=== PATIENT | male | born 1970 | race Caucasian/White ===

== ENCOUNTER → 2016-04-26 | Outpatient (CLI) | payer OTHER ==
--- NOTE | 2016-04-26 14:09 | US ---
EXAMINATION TYPE: US abdomen complete DATE OF EXAM: 04/26/2016 11:21 AM COMPARISON: CT in PACS CLINICAL HISTORY: Generalized ABD pain EXAM MEASUREMENTS: Liver Length: 15.8 cm Gallbladder Wall: 0.3 cm CBD: 0.4 cm Spleen: 10.2 cm Right Kidney: 12.1 x 4.6 x 5.2 cm Left Kidney: 11.3 x 6.2 x 6.0 cm ANATOMY: TECHNOLOGIST IMPRESSION: Pancreas: Obscured by bowel gas Liver: Heterogeneous, probable fatty sparing near GB/ Difficult to penetrate Gallbladder: wnl Evidence for sonographic Payton's sign: No CBD: wnl Spleen: wnl Right Kidney: wnl Left Kidney: wnl Upper IVC: wnl Abd Aorta: wnl As Above IMPRESSION: 1. Normal abdomen ultrasound.
== END | disposition home or self-care (01) ==
LOC: RADUSWWP 11:04
PROVIDERS: ATTEND Family Medicine
DX: R10.30 Lower abdominal pain, unspecified (principal)
CPT/HCPCS: 76700

== ENCOUNTER → 2016-05-17 | Outpatient (CLI) | payer OTHER ==
--- NOTE | 2016-05-17 15:05 | NM ---
EXAMINATION TYPE: NM hepatobiliary w CCK DATE OF EXAM: 05/17/2016 3:02 PM COMPARISON: Right upper quadrant ultrasound April 26, 2016 HISTORY: Cholecystitis per order. Abdominal pain on the right side with diminished appetite for 3 wee ks as well as reflux and nausea. TECHNIQUE: After the intravenous administration of 5.5 mCi Tc 99m Mebrofenin hepatobiliary scintigrap hy is performed. Immediate images post injection. FINDINGS: There is satisfactory initial accumulation of tracer by the liver. The gallbladder is visualized wit hin 15 minutes. The small bowel activity is noted within 45 minutes. At one hour CCK was administer ed, patient was injected with 1.7 mcg of Kinevac, and gallbladder ejection fraction is calculated at 88 %, not diminished from normal range. Therefore there is no scintigraphic evidence of cystic or co mmon bile duct obstruction to suggest acute cholecystitis. Some consider ejection fraction 88% as abn ormal are hyperkinetic response. IMPRESSION: Ejection fraction is 88%, some consider this abnormal or a hyperkinetic response.
== END | disposition home or self-care (01) ==
LOC: RADNMMAIN 12:37
PROVIDERS: ATTEND Surgery
DX: R10.84 Generalized abdominal pain (principal)
CPT/HCPCS: 78227; A9537; J2805

== ENCOUNTER 2016-05-20 08:04 | Day surgery (SDC) | payer OTHER ==
[2016-05-19 14:43] VITALS: BMI 31.6
[~2016-05-20 08:04] MED LIST: LACTATED RINGERS 1,000 ML IV SCH
[2016-05-20 08:24] VITALS: RESP 16; TEMP 98
[2016-05-20] MEDS ORDERED: LIDOCAINE 1% 20 ML VIAL (10MG/ML) FOR IV START INTRADERMA ONE (08:28)
[2016-05-20] MEDS ORDERED: fentaNYL (PF) 50 MCG/ML 2 ML AMP ONE (08:37)
[2016-05-20] MEDS ORDERED: PROPOFOL 10 MG/ML 20 ML VIAL IV ONE (08:37)
[2016-05-20] MEDS ORDERED: MIDAZOLAM 2 MG/2 ML VIAL ONE (08:37)
--- NOTE | 2016-05-20 08:52 | P.GSHP ---
History of Present Illness H&P Date: 05/20/16 Chief Complaint: Epigastric abdominal pain, GERD This a 45-year-old male who has complaints of epigastric dull pain and GERD. He presents today for EGD. He was seen in the office and a HIDA scan was ordered. His HIDA scan shows evidence of biliary hypokinesis with ejection fraction of 88%. - Constitutional Constitutional: Reports as per HPI Past Medical History Past Medical History: Cancer Additional Past Medical History / Comment(s): testicular CA History of Any Multi-Drug Resistant Organisms: None Reported Past Surgical History: No Surgical Hx Reported Additional Past Surgical History / Comment(s): testicle ; Abd. lymph node biopsy Past Psychological History: No Psychological Hx Reported Smoking Status: Current some day smoker Past Alcohol Use History: None Reported Past Drug Use History: Marijuana Medications and Allergies Home Medications Medication Instructions Recorded Confirmed Type Citalopram Hydrobromide [CeleXA] 40 mg PO DAILY 05/19/16 05/20/16 History QUEtiapine [SEROquel] 200 mg PO HS 05/19/16 05/20/16 History Allergies Allergy/AdvReac Type Severity Reaction Status Date / Time latex Allergy Rash/Hives Verified 05/20/16 08:24 Surgical - Exam Vital Signs Temp Pulse Resp BP Pulse Ox 98 F 67 16 121/84 97 05/20/16 08:21 05/20/16 08:21 05/20/16 08:21 05/20/16 08:21 05/20/16 08:21 - General well developed, no distress - Eyes PERRL - ENT normal pinna - Neck no masses - Respiratory normal expansion - Cardiovascular Rhythm: regular - Abdomen Mild right upper quadrant tenderness Abdomen: soft Assessment and Plan Plan: Epigastric abdominal pain, GERD. We'll perform EGD.
--- NOTE | 2016-05-20 09:02 | P.OP ---
Preoperative Diagnosis: GERD Postoperative Diagnosis: Antral gastritis Sliding hiatal hernia Esophagitis Procedure(s) Performed: EGD Anesthesia: MAC Surgeon: Brad Sanchez Pathology: other (Antral, esophagus) Condition: stable Disposition: PACU Description of Procedure: The patient's placed on the endoscopy table in the lateral position. He received IV sedation. The gastroscope some placed oropharynx and passed into the esophagus and into the stomach. Scope was then placed through the pylorus. The first and second portion of the duodenum appeared normal. Scope was then brought back the antrum. This area was minimally inflamed. A biopsies performed. The scope was then retroflexed and the remainder some appeared normal. There was a sliding hiatal hernia. The GE junction was at 38 cm. The distal esophagus appeared inflamed a biopsies performed. The proximal esophagus. Normal. Scope was withdrawn for patient.
[2016-05-20 09:27] VITALS: BP 110/77; PULSE 58
== END 2016-05-20 09:47 | disposition home or self-care (01) ==
LOC: ORWHC2ENDO 08:04
PROVIDERS: ATTEND Surgery
DX: K29.50 Unspecified chronic gastritis without bleeding (principal); K44.9 Diaphragmatic hernia without obstruction or gangrene; K21.0 Gastro-esophageal reflux disease with esophagitis; Z85.47 Personal history of malignant neoplasm of testis; F39 Unspecified mood [affective] disorder; F17.200 Nicotine dependence, unspecified, uncomplicated; Z79.899 Other long term (current) drug therapy; Z91.040 Latex allergy status
CPT/HCPCS: 88305; 88342; 43239; J2250; J3010; J2704; 99153

== ENCOUNTER 2016-06-07 06:29 | Day surgery (SDC) | payer OTHER ==
[2016-06-03 18:06] VITALS: BMI 31.6
[~2016-06-07 06:29] MED LIST changes: +DEXAMETHASONE SOD PHOSPHATE 10 MG/ML 1 ML VIAL IV ONE; +HEPARIN SODIUM,PORCINE 5,000 UNIT/ML 1 ML VIAL SQ ONE; +MIDAZOLAM 2 MG/2 ML VIAL IV PRN; +ONDANSETRON 4 MG/2 ML VIAL IVP ONE; +ceFAZolin 2 GM in SODIUM CHLORIDE 0.9% 100 ML IVPB ONE
[2016-06-07] MEDS ORDERED: LIDOCAINE 1% 20 ML VIAL (10MG/ML) FOR IV START INTRADERMA ONE (07:00)
--- NOTE | 2016-06-07 07:52 | P.GSHP ---
History of Present Illness H&P Date: 06/07/16 Chief Complaint: Cholecystitis This a 45-year-old male said complaints of right quadrant pain. His recent HIDA scan shows an elevated ejection fraction 88% with evidence of biliary hyperkinesia. He presents today for laparoscopic cholecystectomy. - Constitutional Constitutional: Reports as per HPI Past Medical History Past Medical History: Cancer Additional Past Medical History / Comment(s): hx. testicular cancer, just started antibiotics for "intestine" infection, has hiatal hernia History of Any Multi-Drug Resistant Organisms: None Reported Past Surgical History: No Surgical Hx Reported Additional Past Surgical History / Comment(s): testicle removed,abd. lymph node bx., recent EGD Past Anesthesia/Blood Transfusion Reactions: No Reported Reaction Past Psychological History: No Psychological Hx Reported Smoking Status: Former smoker Past Alcohol Use History: None Reported Additional Past Alcohol Use History / Comment(s): quit smoking last week, started in 1989 Past Drug Use History: Marijuana Additional Drug Use History / Comment(s): occasional use - Past Family History Mother Family Medical History: No Reported History Medications and Allergies Home Medications Medication Instructions Recorded Confirmed Type Citalopram Hydrobromide [CeleXA] 40 mg PO HS 05/19/16 06/07/16 History QUEtiapine [SEROquel] 200 mg PO HS 05/19/16 06/07/16 History Amoxicillin 500 mg PO Q12HR 06/03/16 06/07/16 History Clarithromycin [Clarithromycin ER] 500 mg PO DAILY 06/03/16 06/07/16 History Omeprazole 20 mg PO DAILY 06/03/16 06/07/16 History Allergies Allergy/AdvReac Type Severity Reaction Status Date / Time latex Allergy Rash/Hives Verified 06/07/16 06:46 Surgical - Exam Vital Signs Temp Pulse Resp BP Pulse Ox 97.0 F L 77 16 145/87 98 06/07/16 06:42 06/07/16 06:42 06/07/16 06:42 06/07/16 06:42 06/07/16 06:42 - General well developed, no distress - Eyes PERRL - ENT normal pinna - Neck no masses - Respiratory normal expansion - Cardiovascular Rhythm: regular - Abdomen Mild right upper quadrant pain Abdomen: soft Assessment and Plan Plan: Right upper quadrant pain. Elevated ejection fraction, biliary hypokinesis We'll perform laparoscopic cholecystectomy
[2016-06-07] MEDS ORDERED: HYDROmorphone (PF) 1 MG/ML ONE (07:56)
[2016-06-07] MEDS ORDERED: NEOSTIGMINE 1 MG/ML 10 ML VIAL ONE (07:56)
[2016-06-07] MEDS ORDERED: BUPIVACAIN-EPI 0.25%-1:200,000 30 ML VIAL SQ ONE ×3 (07:56→08:21)
[2016-06-07] MEDS ORDERED: ROCURONIUM BROMIDE 10 MG/ML 10 ML VIAL IV ONE (07:56)
[2016-06-07] MEDS ORDERED: PROPOFOL 10 MG/ML 20 ML VIAL IV ONE (07:56)
[2016-06-07] MEDS ORDERED: SUCCINYLCHOLINE CHLORIDE 100 MG/5 ML SYR IV ONE (07:56)
[2016-06-07] MEDS ORDERED: LIDOCAINE 1% INJ 10MG/ML (20 ML MDV) ONE (07:56)
[2016-06-07] MEDS ORDERED: fentaNYL (PF) 50 MCG/ML 2 ML AMP ONE (07:56)
[2016-06-07] MEDS ORDERED: GLYCOPYRROLATE 0.2 MG/ML 2 ML VIAL ONE (07:56)
[2016-06-07] MEDS ORDERED: MIDAZOLAM 2 MG/2 ML VIAL ONE (07:56)
--- NOTE | 2016-06-07 08:48 | P.OP ---
Date of Procedure: 06/07/16 Preoperative Diagnosis: Cholecystitis Postoperative Diagnosis: Cholecystitis Procedure(s) Performed: Laparoscopic cholecystectomy Anesthesia: BLANCO Surgeon: Brad Sanchez Estimated Blood Loss (ml): 5 Pathology: other (Gallbladder) Condition: stable Disposition: PACU Description of Procedure: The patient was placed on the operating table. The patient received a general endotracheal tube anesthesia. The patients abdomen was prepped and draped in the usual sterile fashion. Through an infraumbilical stab incision, the fascia of the anterior abdominal wall was grasped with a pair of Kochers and then the Veress needle was placed in the peritoneal cavity. Position of the Veress needle was confirmed with positive drop test. The abdomen was then insufflated. After adequate insufflation, the 10 mm trocar was placed in the peritoneal cavity. Following this the laparoscope was placed in the peritoneal cavity. The patient was placed in the head-up, right side up position and then a 5 mm trocar was placed in the right lateral and right subcostal position under direct visualization. A 8 mm trocar was placed in the epigastric position. The gallbladder was grasped in the fundus and infundibulum. Traction on the gallbladder was placed in the lateral and the cephalad positions. The triangle of Calot was visualized.. The cystic duct was bluntly dissected until the union of the cystic duct and common bile duct was seen. The cystic duct was then divided and sealed with the Harmonic scissors. A PDS Endoloop was then placed throughout the cystic duct stump. The cystic artery divided and sealed with the Harmonic scissors. The gallbladder was then removed from the liver bed using Harmonic scissors. The gallbladder was then extracted through the epigastric port site. Operative field was checked for any bleeding spots and Harmonic scissors was used to coagulate the liver bed. The abdomen was irrigated. The trocars were removed. The skin was closed using interrupted 3-0 Vicryl suture. Dermabond dressing were applied. The patient tolerated the procedure well.
[2016-06-07 09:08] VITALS: TEMP 97.6
[2016-06-07] MEDS: HYDROmorphone 1 MG/ML 1 ML SYRINGE IVP PRN ×2 (09:08→09:21)
[2016-06-07] MEDS ORDERED: LACTATED RINGERS 1,000 ML IV ONE (09:13)
[2016-06-07] MEDS ORDERED: HYDROmorphone 1 MG/ML 1 ML SYRINGE IVP ONE (09:15)
[2016-06-07] MEDS ORDERED: MEPERIDINE 50 MG/ML SYRINGE IVP ONE (09:30)
[2016-06-07] MEDS ORDERED: HYDROcodone/APAP 7.5-325MG 1 EACH TAB PO ONE (10:37)
[2016-06-07 11:37] VITALS: RESP 18
[2016-06-07 11:46] VITALS: BP 141/85; PULSE 66
== END 2016-06-07 12:20 | disposition home or self-care (01) ==
LOC: OR 06:29
PROVIDERS: ATTEND Surgery
DX: K81.1 Chronic cholecystitis (principal); Z87.891 Personal history of nicotine dependence; Z85.47 Personal history of malignant neoplasm of testis; F32.9 Major depressive disorder, single episode, unspecified; Z91.040 Latex allergy status
CPT/HCPCS: 88304; 47562; J2250; J1644; J1100; J2710; J2175; J0690; J2405; J2001; J3010; J1170; J0330; J2704

== ENCOUNTER 2016-08-05 07:44 | Observation (INO) | payer OTHER ==
[2016-07-30 16:14] VITALS: BMI 29.9
[~2016-08-05 07:44] MED LIST changes: -LACTATED RINGERS 1,000 ML IV SCH; -MIDAZOLAM 2 MG/2 ML VIAL IV PRN
--- NOTE | 2016-08-05 08:27 | P.GSHP ---
History of Present Illness H&P Date: 08/05/16 Chief Complaint: GERD This a 45-year-old male referred from Dr. Jaeger. Patient has had long- standing problems reflux esophagitis.The patient has had long-standing problems with reflux esophagitis. The patient underwent recent EGD is found have evidence of esophagitis. Patient has been well informed on the procedure of laparoscopic Francois fundoplication. The patient is aware the risk of the conversion to the open procedure, risk of injury to the stomach, liver and spleen. The patient is also a risk of recurrent GERD and dysphagia symptoms. The patient understands there is a postoperative diet of full liquids for 2 weeks after surgery. - Constitutional Constitutional: Reports as per HPI Past Medical History Past Medical History: Cancer Additional Past Medical History / Comment(s): Hx Testicular Cancer. "HAS A HOLE, ULCER, IN INTESTINE" Has Hiatal Hernia History of Any Multi-Drug Resistant Organisms: None Reported Past Surgical History: Cholecystectomy Additional Past Surgical History / Comment(s): RT Testicle Removed, Abd lymph node DISSECTION W/ bx. Recent EGD. Past Anesthesia/Blood Transfusion Reactions: No Reported Reaction Past Psychological History: Anxiety, Bipolar, Depression Smoking Status: Former smoker Past Alcohol Use History: None Reported Additional Past Alcohol Use History / Comment(s): SMOKING SINCE 1989, SMOKED VERY LITTLE, QUIT 05/2016. Past Drug Use History: Marijuana Additional Drug Use History / Comment(s): occasional use - Past Family History Mother Family Medical History: No Reported History Medications and Allergies Home Medications Medication Instructions Recorded Confirmed Type Citalopram Hydrobromide [CeleXA] 40 mg PO HS 05/19/16 08/05/16 History QUEtiapine [SEROquel] 200 mg PO HS 05/19/16 08/05/16 History Allergies Allergy/AdvReac Type Severity Reaction Status Date / Time latex Allergy Rash/Hives Verified 07/30/16 15:37 Surgical - Exam Vital Signs Temp Pulse Resp BP Pulse Ox 97.2 F L 57 L 16 128/78 94 L 08/05/16 08:17 08/05/16 08:17 08/05/16 08:17 08/05/16 08:17 08/05/16 08:17 - General well developed, no distress - Eyes PERRL - ENT normal pinna - Neck no masses - Respiratory normal expansion - Cardiovascular Rhythm: regular - Abdomen Abdomen: soft, non tender Assessment and Plan Plan: GERD. We'll perform laparoscopic Francois fundal plication.
[2016-08-05] MEDS ORDERED: LIDOCAINE 1% 20 ML VIAL (10MG/ML) FOR IV START INTRADERMA ONE (08:34)
[2016-08-05] MEDS: LACTATED RINGERS 1,000 ML IV SCH (08:34)
[2016-08-05] MEDS ORDERED: NEOSTIGMINE 1 MG/ML 10 ML VIAL ONE (08:46)
[2016-08-05] MEDS ORDERED: SUCCINYLCHOLINE CHLORIDE 100 MG/5 ML SYR IV ONE (08:46)
[2016-08-05] MEDS ORDERED: SODIUM CHLORIDE 0.9% 50 ML with ceFAZolin 2,000 MG IV ONE ×2 (08:46)
[2016-08-05] MEDS ORDERED: MIDAZOLAM 2 MG/2 ML VIAL ONE (08:46)
[2016-08-05] MEDS ORDERED: LIDOCAINE 1% INJ 10MG/ML (20 ML MDV) ONE (08:46)
[2016-08-05] MEDS ORDERED: PROPOFOL 10 MG/ML 20 ML VIAL IV ONE (08:46)
[2016-08-05] MEDS ORDERED: KETOROLAC 30 MG/ML 1 ML VIAL ONE (08:46)
[2016-08-05] MEDS ORDERED: VECURONIUM 10 MG VIAL IV ONE (08:46)
[2016-08-05] MEDS ORDERED: fentaNYL (PF) 50 MCG/ML 2 ML AMP ONE (08:46)
[2016-08-05] MEDS ORDERED: GLYCOPYRROLATE 0.2 MG/ML 2 ML VIAL ONE (08:46)
[2016-08-05] MEDS ORDERED: BUPIVACAIN-EPI 0.25%-1:200,000 30 ML VIAL SQ ONE (09:17)
[2016-08-05] MEDS ORDERED: ACETAMINOPHEN TAB 325 MG TAB PO PRN (09:49)
[2016-08-05] MEDS ORDERED: HYDROmorphone 1 MG/ML 1 ML SYRINGE IVP PRN (09:49)
[2016-08-05] MEDS ORDERED: ONDANSETRON 4 MG/2 ML VIAL IVP PRN (09:49)
[2016-08-05] MEDS ORDERED: LACTATED RINGERS 1,000 ML IV ONE (09:49)
[2016-08-05] MEDS ORDERED: NALOXONE 0.4 MG/ML 1 ML VIAL IV PRN (09:49)
--- NOTE | 2016-08-05 09:49 | P.OP ---
Date of Procedure: 08/05/16 Preoperative Diagnosis: GERD Postoperative Diagnosis: GERD Adhesions Procedure(s) Performed: Laparoscopic lysis of adhesions Laparoscopic Francois fundoplication Anesthesia: BLANCO Surgeon: Brad Sanchez Estimated Blood Loss (ml): 5 Pathology: none sent Condition: stable Disposition: PACU Description of Procedure: The patient was placed on the operating table in the supine position. The patient received general anesthesia. And was placed in dorsal lithotomy position. The patient was prepped and draped in the usual sterile fashion. The skin incision sites were anesthetized with 1% local Xylocaine. The skin was incised in the left periumbilical area and then using a blade less 5 mm trocar under direct visualization panel cavity was entered. After adequate insufflation the laparoscope was then placed into the peritoneal cavity. There is extensive adhesions noted along the midline. Next a 5 mm trochars placed in the right epigastric position. Another 5 millimeter trocar the right lateral position. Another 5 millimeter trocar in the left lateral position a 5 mm trocar is placed in the left epigastric position. And then the initial 5 mm trocar was exchanged for a 10 mm trocar. The left lateral lobe liver was retracted. The adhesions along the midline were lysed using the Harmonic scissors. Approximate 15 minutes operative time used to lyse adhesions. The hernia was seen. The crural defect was then dissected using the Harmonic scissors device. A 360 crural dissection was performed the esophagus stomach was reduced back into the peritoneal Cavity. The crural defect was then closed using 2-0 Ethibond suture. Next the fundus of the stomach was mobilized using the [place] scissors device. and then a 58-English bougie dilator was placed oropharynx passed into the esophagus and stomach the fundal plication wrap was then performed by grasping the fundus posteriorly and bringing it around the esophagus and stomach fundoplication was then performed using 2-0 Ethibond suture. Care was taken that the fundal location rested over top of the intra- abdominal esophagus. There was no injury seen to the stomach or esophagus. The dilator was then withdrawn. The abdomen was irrigated there is no bleeding seen. The trochars were then withdrawn and then skin incision sites were closed using 3-0 Monocryl suture Steri-Strips are applied. Patient thought procedure well and sent to recovery room in stable condition.
[2016-08-05] MEDS: HYDROmorphone 1 MG/ML 1 ML SYRINGE IVP PRN ×4 (10:15→10:45)
[2016-08-05] MEDS: KETOROLAC 30 MG/ML 1 ML VIAL IVP SCH ×2 (12:31→18:14)
[2016-08-05] MEDS: HYDROcodone/APAP 5-325MG 1 EACH TAB PO PRN ×2 (16:23→21:34)
--- NOTE | 2016-08-05 16:32 | FL ---
EXAMINATION TYPE: FL UGI w esophagus DATE OF EXAM: 08/05/2016 3:45 PM COMPARISON: NONE HISTORY: Post Alden fundoplication TECHNIQUE: A single contrast UGI study is performed. FINDINGS: Contrast passes from the distal esophagus through the gastroesophageal junction with modera te hesitancy. No extravasation of contrast is evident. No free air is noted during this examination. Overhead radiographs were obtained which are unremarkable. IMPRESSIONS: 1. Moderate hesitancy passing through the Alden fundoplication. No obstruction or extravasation of c ontrast is evident.
--- NOTE | 2016-08-05 19:30 | CONS ---
DATE OF CONSULTATION: 08/05/2016 REASON FOR CONSULTATION: Medical management requested by Dr. Sanchez. CONSULTATION: This is a 45-year-old patient of Dr. Brenda Lynn who has now undergone Francois fundoplication, adhesiolysis. Patient presented after having significant epigastric discomfort, heartburn symptoms for quite some time, and this was an elective procedure. Patient had tried PPIs ( ). Patient's chronic stable medical conditions include bipolar disorder, for which he takes medication, and it is under control. Patient is currently allowed a clear liquid diet. He is lying in bed, not in distress. Some pain at the operative site. REVIEW OF SYSTEMS: CONSTITUTIONAL: Tired. HEENT: None. RESPIRATORY: None. CARDIOVASCULAR: None. GASTROINTESTINAL: As above. GENITOURINARY: None. MUSCULOSKELETAL: None. DERMATOLOGICAL: None. HEMATOLOGICAL: None. LYMPHATICS: None. PSYCHIATRY: History of bipolar. NEUROLOGICAL: None. PAST MEDICAL HISTORY: 1. Heartburn. 2. Bipolar disorder. 3. Testicular cancer. 4. Hiatal hernia. PAST SURGICAL HISTORY: 1. Right testicle removed. 2. Abdominal lymph node dissection. 3. Cholecystectomy. SOCIAL HISTORY: Patient smokes very little for a period of time; mainly secondhand smoker. Marijuana occasionally. Lives with his girlfriend. Unemployed. FAMILY HISTORY: Reviewed; noncontributory to presentation. HOME MEDICATIONS: 1. Seroquel 200 mg p.o. at bedtime. 2. Celexa 40 mg p.o. at bedtime. ALLERGIES: LATEX. On examination, temperature 97.4, pulse 72, respiration 16, blood pressure 141/101, pulse ox 100% on room air. GENERAL APPEARANCE: Average build. BMI of 30. Lying in bed. Not in distress. EYES: Pupils equal. Conjunctivae normal. HEENT: External appearance of nose and ears normal. Oral cavity normal. NECK: JVD not raised. Mass not palpable. RESPIRATORY: Effort normal. LUNGS: Fair air entry. CARDIOVASCULAR: First and second sounds normal. No edema. ABDOMEN: Laparoscopic rivera present. Mild tenderness. Liver and spleen not palpable. Bowel sounds are present. LYMPHATIC: No lymph node palpable in neck or axillae. PSYCHIATRY: Alert and oriented x3. Mood and affect normal. NEUROLOGICAL: Pupils equal. Cranial nerves grossly intact. Power and sensation grossly intact. INVESTIGATIONS: No blood work done. ASSESSMENT: 1. Abdominal surgery leading to adhesiolysis and Francois fundoplication for gastroesophageal reflux disease and hiatal hernia. 2. Bipolar disorder, depression, currently stable on current medications. 3. Recreational marijuana use. PLAN: Patient is currently getting IV fluids. Pain control per Dr. Sanchez. Patient was told to stop smoking completely and also avoid marijuana. Care was discussed with the patient. Thank you, Dr. Sanchez. Will follow the patient with you.
[2016-08-05] MEDS ORDERED: CITALOPRAM HYDROBROMIDE 20 MG TAB PO SCH (21:00)
[2016-08-05] MEDS ORDERED: QUEtiapine 200 MG TAB PO SCH (21:00)
[2016-08-05] MEDS: DOCUSATE 100 MG CAP PO SCH (22:47)
[2016-08-06] MEDS: KETOROLAC 30 MG/ML 1 ML VIAL IVP SCH ×2 (00:24→05:16)
[2016-08-06 01:45] VITALS: RESP 16
[2016-08-06] MEDS: HYDROcodone/APAP 5-325MG 1 EACH TAB PO PRN ×2 (05:27→12:36)
[2016-08-06] MEDS: LACTATED RINGERS 1,000 ML IV SCH (05:31)
[2016-08-06 07:34] VITALS: BP 128/75; PULSE 60; TEMP 97.9
[2016-08-06] MEDS: DOCUSATE 100 MG CAP PO SCH (07:35)
[2016-08-06] MEDS ORDERED: ENOXAPARIN 40 MG/0.4 ML SYRINGE SQ SCH (09:00)
--- NOTE | 2016-08-06 13:29 | P.DS ---
Providers Date of admission: 08/05/16 21:32 Expected date of discharge: 08/06/16 Attending physician: Brad Sanchez Consults: 08/05/16 09:49 Consult Physician Routine Consulting Provider: Rivas Wyatt Consult Reason/Comments: Medical management Do you want consulting provider notified?: Yes [facility] Course: Patient is a 45-year-old male referred from Dr. Nicole. Medical history significant for reflux esophagitis not responding to conservative treatment. Patient presented for elective laparoscopic Francois fundoplication. Patient underwent laparoscopic Francois fundoplication and laparoscopic lysis of adhesions. Patient tolerated procedure well. Upper GI postsurgery without evidence of obstruction or leak. Patient had an uneventful postoperative recovery. No problems with dysphagia. Patient was up ambulating. Passing flatus. Urinating without difficulty. Incisional pain controlled. Patient was deemed stable for discharge to home with close follow-up in the outpatient setting. Discharge diagnoses: 1. GERD status post laparoscopic Francois fundoplication. 2. Adhesions status post laparoscopic lysis of adhesions. The above impression and plan have been discussed and directed by Dr. Sanchez. Tracy GRAJEDA acting as scribe for Dr. Sanchez. Pertinent Studies: Upper GI/barium swallow x-ray Procedures: Laparoscopic Francois fundoplication Laparoscopic lysis of adhesions Patient Condition at Discharge: Good Plan - Discharge Summary New Discharge Prescriptions: Docusate [Colace] 100 mg PO BID #20 capsule HYDROcodone/APAP 7.5-325MG [[place] 7.5-325] 1 tab PO Q6HR PRN #28 tab PRN Reason: Pain Discharge Medication List Citalopram Hydrobromide [CeleXA] 40 mg PO HS 05/19/16 [History] QUEtiapine [SEROquel] 200 mg PO HS 05/19/16 [History] Docusate [Colace] 100 mg PO BID #20 capsule 08/06/16 [Rx] HYDROcodone/APAP 7.5-325MG [[place] 7.5-325] 1 tab PO Q6HR PRN #28 tab 08/06/16 [ Rx] Follow up Appointment(s)/Referral(s): Brenda Lynn MD [Primary Care Provider] - 1 Week Brad Sanchez MD [STAFF PHYSICIAN] - 08/19/16 2:20 pm Patient Instructions/Handouts: *Surgery [facility] - ([facility]) Lap Francois Fundiplication Post-Op Instructions Activity/Diet/Wound Care/Special Instructions: No heavy lifting, pushing, or pulling items greater than 10 pounds. Full liquid diet for 2 weeks. No caffeinated beverages or straws. Shower daily, no soaking in bath tubs, pools, or hot tubs. No driving while taking pain medication. Notify surgeon with any signs or symptoms of infection, increased pain, or not tolerating diet. Discharge Disposition: HOME SELF-CARE
== END 2016-08-06 13:47 | disposition home or self-care (01) ==
LOC: OR 07:44 → 3SUR 09:55 → OR 21:32
PROVIDERS: ADMIT Surgery; ATTEND Surgery
DX: K21.9 Gastro-esophageal reflux disease without esophagitis (principal); K44.9 Diaphragmatic hernia without obstruction or gangrene; K66.0 Peritoneal adhesions (postprocedural) (postinfection); F31.9 Bipolar disorder, unspecified; F12.90 Cannabis use, unspecified, uncomplicated; Z85.47 Personal history of malignant neoplasm of testis; Z90.49 Acquired absence of other specified parts of digestive tract; Z90.79 Acquired absence of other genital organ(s); Z87.891 Personal history of nicotine dependence; Z79.899 Other long term (current) drug therapy; Z91.040 Latex allergy status
CPT/HCPCS: 43280; 49329; 96376; 96361 ×2; 96374; 74240; G0378 ×2; J2250; J1644; J1100; J2710; Q9967; J2405; J0690; J2001; J1650; J3010; J1885 ×2; J1170; J0330; J2704

== ENCOUNTER 2017-07-08 17:20 | Emergency (ER) | payer OTHER ==
[2017-07-08 17:32] VITALS: BP 121/76; PULSE 65; RESP 18; TEMP 96.3
--- NOTE | 2017-07-08 18:11 | ED ---
Skin/Abscess/FB HPI - General Chief complaint: Skin/Abscess/Foreign Body Stated complaint: abscess on rt middle finger Time Seen by Provider: 07/08/17 17:24 Source: patient Mode of arrival: ambulatory Limitations: no limitations - History of Present Illness Initial comments: 46-year-old male patient presents to the emergency department today for evaluation of infection to his right middle finger. Patient states approximately a week ago he actually stabbed his finger with a nail. Patient states that over the next few days following that he developed redness and swelling around the nail. Patient states he did go to [facility] urgent care and did have it drained and was started on antibiotics. He states that he has been taking Augmentin, applying it triple antibiotic ointments and doing a warm soak at night time but is seems to be worsening. Patient states he did go to urgent care once again and had it read drained. Patient states that the areas increasing in size and the redness is spreading. He denies any fevers or chills with this. Denies any numbness or tingling to the finger. Patient denies any recent rash, shortness breath, chest pain, abdominal pain, nausea, vomiting, diarrhea, constipation, back pain, numbness, tingling, dizziness, weakness, hematuria, dysuria, urinary urgency, urinary frequency, headache, visual changes, or any other complaints. - Related Data Home Medications Medication Instructions Recorded Confirmed Citalopram Hydrobromide [CeleXA] 40 mg PO HS 05/19/16 08/05/16 QUEtiapine [SEROquel] 200 mg PO HS 05/19/16 08/05/16 Previous Rx's Medication Instructions Recorded Docusate [Colace] 100 mg PO BID #20 capsule 08/06/16 HYDROcodone/APAP 7.5-325MG [[place] 1 tab PO Q6HR PRN #28 tab 08/06/16 7.5-325] Acetaminophen-Codeine 300-30mg 1 tab PO Q6H PRN #12 tablet 07/08/17 [Tylenol #3] Ciprofloxacin HCl [Cipro] 500 mg PO Q12HR #20 tablet 07/08/17 Clindamycin HCl 300 mg PO Q8H #30 cap 07/08/17 Ibuprofen [Motrin] 600 mg PO Q8HR PRN #30 tab 07/08/17 Mupirocin 2% Oint [Bactroban 2% 1 applic NASAL TID #15 gm 07/08/17 Oint] Allergies Allergy/AdvReac Type Severity Reaction Status Date / Time latex Allergy Rash/Hives Verified 07/30/16 15:37 Review of Systems ROS Statement: Those systems with pertinent positive or pertinent negative responses have been documented in the HPI. ROS Other: All systems not noted in ROS Statement are negative. Past Medical History Past Medical History: Cancer Additional Past Medical History / Comment(s): Hx Testicular Cancer. "HAS A HOLE, ULCER, IN INTESTINE" Has Hiatal Hernia History of Any Multi-Drug Resistant Organisms: None Reported Past Surgical History: Cholecystectomy Additional Past Surgical History / Comment(s): RT Testicle Removed, Abd lymph node DISSECTION W/ bx. Recent EGD. Past Anesthesia/Blood Transfusion Reactions: No Reported Reaction Past Psychological History: Anxiety, Bipolar, Depression Smoking Status: Former smoker Past Alcohol Use History: None Reported Past Drug Use History: Marijuana - Past Family History Mother Family Medical History: No Reported History Father Family Medical History: No Reported History General Exam Limitations: no limitations General appearance: alert, in no apparent distress, other (This is a well- developed, well-nourished adult male patient in no acute distress. Vital signs upon presentation are temperature 96.3F, pulse 65, respirations 18, blood pressure 121/76, pulse ox 96% on room air.) Eye exam: Present: normal appearance, PERRL, EOMI. Absent: scleral icterus, conjunctival injection, periorbital swelling ENT exam: Present: normal exam, normal oropharynx, mucous membranes moist Respiratory exam: Present: normal lung sounds bilaterally. Absent: respiratory distress, wheezes, rales, rhonchi, stridor Cardiovascular Exam: Present: regular rate, normal rhythm, normal heart sounds. Absent: systolic murmur, diastolic murmur, rubs, gallop, clicks Extremities exam: Present: full ROM, tenderness (Right middle distal finger tenderness), normal capillary refill, other (Patient has erythema, swelling, and a pustule noted to the proximal nail fold on the right middle finger. The finger pad is soft. Remainder of skin is pink, warm, and dry. Cap refills less than 3 seconds. Radial pulses 2+ and equal bilaterally.). Absent: normal inspection, pedal edema, joint swelling, calf tenderness Neurological exam: Present: alert, oriented X3, CN II-XII intact Psychiatric exam: Present: normal affect, normal mood Skin exam: Present: warm, dry, intact, normal color. Absent: rash Course Vital Signs 07/08/17 07/08/17 17:26 17:33 Temperature 96.3 F L 96.3 F L Pulse Rate 65 65 Respiratory 18 18 Rate Blood Pressure 121/76 121/76 O2 Sat by Pulse 96 96 Oximetry Procedures - Incision & Drainage Consent Obtained: verbal consent Indication: Perineal Site: hand (Right middle finger) Anesthetic Used: lidocaine 1% Amount (mLs): 8 (Digital block right middle finger) I&D Cleaning Method: Betadine Scalpel Used: #11 I&D Drainage Obtained: Pus, Blood Patient Tolerated Procedure: well, no complications Medical Decision Making - Medical Decision Making 46-year-old male patient presented to the emergency department today for evaluation of infection to the right middle finger. Physical examination was consistent with paronychia. There is no evidence of felon, finger pad was soft. I did perform a digital block to the right middle finger, I did drain the paronychia. Did get blood and pus from the site. Did perform wound culture. Patient is currently taking Augmentin, we'll switch his antibiotic to clindamycin and Cipro. He'll also be given a prescription for Bactroban ointment and ibuprofen. He is instructed to do warm soaks 3-4 times per day. He is instructed to follow-up for reevaluation with his primary care physician in one to 2 days. He is instructed to follow-up with orthopedics if his symptoms don't start to improve. He is instructed to return here immediately for any new, worsening, or concerning symptoms. He verbalizes understanding and agrees with this plan. Disposition Clinical Impression: Paronychia of right middle finger Disposition: HOME SELF-CARE Condition: Good Instructions: Paronychia (ED) Additional Instructions: Warm soaks 3-4 times per day 20 minutes at a time. Take antibiotics until complete even if you're feeling better. Take pain medication as directed. Follow-up with her primary care physician or the orthopedic physician for further evaluation. Return here immediately for any new, worsening, or concerning symptoms. Prescriptions: Acetaminophen-Codeine 300-30mg [Tylenol #3] 1 tab PO Q6H PRN #12 tablet PRN Reason: Pain Ciprofloxacin HCl [Cipro] 500 mg PO Q12HR #20 tablet Clindamycin HCl 300 mg PO Q8H #30 cap Ibuprofen [Motrin] 600 mg PO Q8HR PRN #30 tab PRN Reason: Pain Mupirocin 2% Oint [Bactroban 2% Oint] 1 applic NASAL TID #15 gm Referrals: Brenda Lynn MD [Primary Care Provider] - 1-2 days Time of Disposition: 18:23
== END 2017-07-08 18:30 | disposition home or self-care (01) ==
LOC: EC 17:20
DX: L03.011 Cellulitis of right finger (principal); F31.9 Bipolar disorder, unspecified; F41.9 Anxiety disorder, unspecified; Z85.47 Personal history of malignant neoplasm of testis; Z87.891 Personal history of nicotine dependence; Z79.899 Other long term (current) drug therapy; Z91.040 Latex allergy status
CPT/HCPCS: 10060; 87070; 87205; 99283

== ENCOUNTER → 2018-06-03 | Outpatient (CLI) | payer OTHER ==
--- NOTE | 2018-06-03 14:50 | MR ---
EXAMINATION TYPE: MR lumbar spine wo con DATE OF EXAM: 06/03/2018 COMPARISON: NONE HISTORY: Pt States xray showed "Lumps" on Tail Bone Pain x 2weeks, XRays at Dr. Phipps Office TECHNIQUE: T1 and T2 axial and sagittal images of the lumbar spine are submitted. FINDINGS: There is no abnormal signal seen within the visualized spinal cord or paraspinal soft tissu es. Nonspecific thickening of the left adrenal gland finding is similar to the prior CT scan of 2013 and therefore likely related to benign adenoma. At L1-2 there is no disc herniation or canal stenosis. No foraminal encroachment. At L2-3 there is degenerative disc disease with circumferential disc bulging and mild hypertrophy of the facets. No Canal stenosis. Neural foramina patent. At L3-4 there is degenerative disc disease with facet arthropathy. Mild circumferential disc bulging. Mild bilateral foraminal encroachment. At L4-5 there is degenerative disc disease with ligamentum flavum hypertrophy and facet arthropathy. There is broad-based central disc bulging and borderline central stenosis. Mild bilateral foraminal e ncroachment. At L5-S1 there is broad-based central disc bulging or protrusion extending far laterally to the right with facet arthropathy and ligamentum flavum hypertrophy. There is moderate to severe right-sided fo raminal encroachment. There is a vacuum disc compatible severe degenerative disc disease. IMPRESSION: 1. Multilevel degenerative disc disease and facet arthropathy result in multilevel foraminal encroach ment with most marked findings seen at L5-S1 on the right. Disc bulging at L5-S1 is seen greater far laterally to the right with severe right-sided foraminal encroachment 2. Multilevel disc bulging with borderline central stenosis at L4-L5. 3. No definite soft tissue mass is seen overlying the lumbar spine region. If there is concern for sa cral abnormality this would require sacrum MRI which is not included on the MR of the lumbar spine.
== END ==
LOC: RADMRIMAIN 13:02
PROVIDERS: ATTEND Family Medicine
DX: M48.061 Spinal stenosis, lumbar region without neurogenic claudication (principal); M51.27 Other intervertebral disc displacement, lumbosacral region; M51.36 Other intervertebral disc degeneration, lumbar region; M46.96 Unspecified inflammatory spondylopathy, lumbar region
CPT/HCPCS: 72148

== ENCOUNTER 2018-07-13 11:50 | Emergency (ER) | payer OTHER ==
[2018-07-13 11:54] VITALS: BP 151/97; PULSE 73; RESP 18; TEMP 98.4
[2018-07-13] MEDS ORDERED: PROPARACAINE 0.5% OPHTH DROPS 15 ML BTL RIGHT EYE STA (12:13)
--- NOTE | 2018-07-13 14:02 | ED ---
General Adult HPI - General Chief complaint: Eye Problems Stated complaint: Parasite in eye Time Seen by Provider: 07/13/18 12:13 Source: patient, RN notes reviewed Mode of arrival: ambulatory Limitations: no limitations - History of Present Illness Initial comments: 47-year-old male presents to the emergency department for a chief complaint of possible parasite in the left eye. Patient states that his eye started to be somewhat irritated yesterday and was draining. He states this happens to him often due to ALLERGIES. Patient states that he pulled a white string out of his eye and is concerned it could be mucus versus parasite. Patient denies this moving at all. Patient did save it in a bag and brought it to the emergency department. Denies any visual changes denies fevers or chills. Denies any pain with movement of the eye. Denies any pain in the eye in general.Patient has no other complaints at this time including shortness of breath, chest pain, abdominal pain, nausea or vomiting, headache, or visual changes. - Related Data Home Medications Medication Instructions Recorded Confirmed Ibuprofen [Motrin Ib] 400 mg PO Q6H PRN 07/13/18 07/13/18 Previous Rx's Medication Instructions Recorded Erythromycin Ophth Oint [Romycin 1 applic LEFT EYE QID 7 Days gm 07/13/18 Ophth Oint] Loratadine [Claritin] 10 mg PO DAILY #20 tab 07/13/18 Allergies Allergy/AdvReac Type Severity Reaction Status Date / Time latex Allergy Rash/Hives Verified 07/13/18 12:47 Review of Systems ROS Statement: Those systems with pertinent positive or pertinent negative responses have been documented in the HPI. ROS Other: All systems not noted in ROS Statement are negative. Past Medical History Past Medical History: Cancer Additional Past Medical History / Comment(s): Hx Testicular Cancer. "HAS A HOLE, ULCER, IN INTESTINE" Has Hiatal Hernia History of Any Multi-Drug Resistant Organisms: None Reported Past Surgical History: Cholecystectomy Additional Past Surgical History / Comment(s): RT Testicle Removed, Abd lymph node DISSECTION W/ bx. Recent EGD. Past Anesthesia/Blood Transfusion Reactions: No Reported Reaction Past Psychological History: Anxiety, Bipolar, Depression Smoking Status: Current some day smoker Past Alcohol Use History: None Reported Past Drug Use History: Marijuana - Past Family History Mother Family Medical History: No Reported History Father Family Medical History: No Reported History General Exam Limitations: no limitations General appearance: alert, in no apparent distress Head exam: Present: atraumatic, normocephalic, normal inspection Eye exam: Present: normal appearance, PERRL, EOMI, other (Very minimal drainage noted from the left eye). Absent: scleral icterus, conjunctival injection (non erythematous in the left eye), periorbital swelling ENT exam: Present: normal exam, normal oropharynx, mucous membranes moist, TM's normal bilaterally, normal external ear exam Neck exam: Present: normal inspection, full ROM. Absent: tenderness, meningismus, lymphadenopathy Respiratory exam: Present: normal lung sounds bilaterally. Absent: respiratory distress, wheezes, rales, rhonchi, stridor Cardiovascular Exam: Present: regular rate, normal rhythm, normal heart sounds. Absent: systolic murmur, diastolic murmur, rubs, gallop, clicks Neurological exam: Present: alert, oriented X3, CN II-XII intact Psychiatric exam: Present: normal affect, normal mood Course Vital Signs 07/13/18 11:52 Temperature 98.4 F Pulse Rate 73 Respiratory 18 Rate Blood Pressure 151/97 O2 Sat by Pulse 100 Oximetry Medical Decision Making - Medical Decision Making 39-year-old male presents to the emergency department for a chief complaint of possible parasite in the left eye. Patient states his eye has been "runny" for the past day and he wiped it in a white string came out. He did bring it to the ER. At this time it is clear, does not appear to be a parasite, looks like mucus from the left eye. The eye was stained with fluorescein stain and visualized with the Wood's lamp, no uptake noted. No visual changes, no pain with movement of the extraocular muscles. Patient given erythromycin and Claritin. States that this happens due to his ALLERGY is sometimes so the Claritin should help. Erythromycin also prescribed in case there is an underlying infectious etiology. Patient will follow up with primary care and return here if he has any worsening symptoms. Disposition Clinical Impression: Conjunctivitis Disposition: HOME SELF-CARE Condition: Good Instructions (If sedation given, give patient instructions): Conjunctivitis (ED) Additional Instructions: Please apply ointment to the affected eye 4 times per day for 7 days. Please follow-up with primary care in 1-2 days. Return here if you have any worsening symptoms. Prescriptions: Loratadine [Claritin] 10 mg PO DAILY #20 tab Erythromycin Ophth Oint [Romycin Ophth Oint] 1 applic LEFT EYE QID 7 Days gm Is patient prescribed a controlled substance at d/c from ED?: No Referrals: Brenda Lynn MD [Primary Care Provider] - 1-2 days Time of Disposition: 13:50
== END 2018-07-13 14:22 | disposition home or self-care (01) ==
LOC: EC 11:50
DX: H10.9 Unspecified conjunctivitis (principal); F17.200 Nicotine dependence, unspecified, uncomplicated; Z91.040 Latex allergy status; Z85.47 Personal history of malignant neoplasm of testis
CPT/HCPCS: 99283

== ENCOUNTER 2019-03-06 11:06 | Emergency (ER) | payer OTHER ==
[2019-03-06 11:25] VITALS: RESP 18
[2019-03-06] MEDS ORDERED: SODIUM CHLORIDE 0.9% 1,000 ML IV STA ×2 (11:46)
[2019-03-06] MEDS ORDERED: KETOROLAC 30 MG/ML 1 ML VIAL IVP STA (11:46)
--- NOTE | 2019-03-06 12:02 | ED ---
Back Pain HPI - General Chief Complaint: Back Pain/Injury Stated Complaint: back pain Time Seen by Provider: 03/06/19 11:34 Source: family, RN notes reviewed, old records reviewed Limitations: no limitations - History of Present Illness Initial Comments: 48-year-old male presents today for evaluation with chief complaint of midthoracic back pain, and complains is worse taking a deep breath and movement. He states isn't having symptoms for the past 2 weeks. He rates the emergency department somewhat anxious. - Related Data Home Medications Medication Instructions Recorded Confirmed Ibuprofen [Motrin Ib] 400 mg PO Q6H PRN 07/13/18 07/13/18 Previous Rx's Medication Instructions Recorded Erythromycin Ophth Oint [Romycin 1 applic LEFT EYE QID 7 Days gm 07/13/18 Ophth Oint] Loratadine [Claritin] 10 mg PO DAILY #20 tab 07/13/18 Ketorolac [Toradol] 10 mg PO TID #12 tab 03/06/19 Orphenadrine [Norflex] 100 mg PO Q12H #12 tablet.er 03/06/19 Allergies Allergy/AdvReac Type Severity Reaction Status Date / Time latex Allergy Rash/Hives Verified 03/06/19 11:21 Review of Systems ROS Statement: Those systems with pertinent positive or pertinent negative responses have been documented in the HPI. ROS Other: All systems not noted in ROS Statement are negative. Past Medical History Past Medical History: Cancer Additional Past Medical History / Comment(s): Hx Testicular Cancer. "HAS A HOLE, ULCER, IN INTESTINE" Has Hiatal Hernia History of Any Multi-Drug Resistant Organisms: None Reported Past Surgical History: Cholecystectomy Additional Past Surgical History / Comment(s): RT Testicle Removed, Abd lymph node DISSECTION W/ bx. Recent EGD. Past Anesthesia/Blood Transfusion Reactions: No Reported Reaction Past Psychological History: Anxiety, Bipolar, Depression Smoking Status: Current some day smoker Past Alcohol Use History: None Reported Past Drug Use History: Marijuana - Past Family History Mother Family Medical History: No Reported History Father Family Medical History: No Reported History General Exam - General Exam Comments Initial Comments: 48 year old male, anxious. Limitations: no limitations General appearance: alert, in no apparent distress Head exam: Present: atraumatic, normocephalic, normal inspection Eye exam: Present: normal appearance, PERRL, EOMI. Absent: scleral icterus, conjunctival injection, periorbital swelling ENT exam: Present: normal exam, mucous membranes moist Neck exam: Present: normal inspection. Absent: tenderness, meningismus, lymphadenopathy Respiratory exam: Present: normal lung sounds bilaterally. Absent: respiratory distress, wheezes, rales, rhonchi, stridor Cardiovascular Exam: Present: regular rate, normal rhythm, normal heart sounds. Absent: systolic murmur, diastolic murmur, rubs, gallop, clicks GI/Abdominal exam: Present: soft, normal bowel sounds. Absent: distended, t enderness, guarding, rebound, rigid Extremities exam: Present: normal inspection, full ROM, normal capillary refill. Absent: tenderness, pedal edema, joint swelling, calf tenderness Back exam: Present: normal inspection, other (tenderness and muscle spasm over the upper thoracic and shoulders. No bruising. ) Neurological exam: Present: alert, oriented X3, CN II-XII intact Psychiatric exam: Present: normal affect, normal mood Course Vital Signs 03/06/19 03/06/19 11:21 15:10 Temperature 97.9 F 98.4 F Pulse Rate 71 65 Respiratory 18 18 Rate Blood Pressure 121/84 125/75 O2 Sat by Pulse 99 98 Oximetry Medical Decision Making - Medical Decision Making 48 year old female, with a complaint of thoracic back pain and spasm for 2 weeks. Report pain was worse today, and brought to ED. PAtient pain is reproducible. CXR is negative. EKG and labs are unremarkable. Ddimer is negat paula. Patient feels better after toradol. Discussed most likely related to muslve spasm and pinched nerve. Discussed possible follow up with ortho help desk specialist. Patient advised to follow up with PCP and return parameters discussed. - Lab Data Result diagrams: 03/06/19 12:03/06/19 12:01 Lab Results 03/06/19 03/06/19 03/06/19 Range/Units 12:01 12: 12:01 WBC 6.5 (3.8-10.6) k/uL RBC 4.65 (4.30-5.90) m/uL Hgb 15.2 (13.0-17.5) gm/dL Hct 44.0 (39.0-53.0) % MCV 94.7 (80.0-100.0) fL MCH 32.7 (25.0-35.0) pg MCHC 34.5 (31.0-37.0) g/dL RDW 12.4 (11.5-15.5) % Plt Count 288 (150-450) k/uL Neutrophils % 69 % Lymphocytes % 21 % Monocytes % 5 % Eosinophils % 4 % Basophils % 1 % Neutrophils # 4.5 (1.3-7.7) k/uL Lymphocytes # 1.3 (1.0-4.8) k/uL Monocytes # 0.3 (0-1.0) k/uL Eosinophils # 0.2 (0-0.7) k/uL Basophils # 0.0 (0-0.2) k/uL PT 9.7 (9.0-12.0) sec INR 0.9 (<1.2) APTT 25.1 (22.0-30.0) sec D-Dimer 0.31 (<0.60) mg/L FEU Sodium 143 (137-145) mmol/L Potassium 4.4 (3.5-5.1) mmol/L Chloride 108 H (98-107) mmol/L Carbon Dioxide 27 (22-30) mmol/L Anion Gap 8 mmol/L BUN 14 (9-20) mg/dL Creatinine 0.86 (0.66-1.25) mg/dL Est GFR (CKD-EPI)AfAm >90 (>60 ml/min/1.73 sqM) Est GFR (CKD-EPI)NonAf >90 (>60 ml/min/1.73 sqM) Glucose 103 H (74-99) mg/dL Calcium 9.9 (8.4-10.2) mg/dL Magnesium 2.0 (1.6-2.3) mg/dL Total Bilirubin 0.7 (0.2-1.3) mg/dL AST 28 (17-59) U/L ALT 44 (21-72) U/L Alkaline Phosphatase 82 (38-126) U/L Troponin I (0.000-0.034) ng/mL Total Protein 7.9 (6.3-8.2) g/dL Albumin 4.8 (3.5-5.0) g/dL 03/06/19 Range/Units 12:01 WBC (3.8-10.6) k/uL RBC (4.30-5.90) m/uL Hgb (13.0-17.5) gm/dL Hct (39.0-53.0) % MCV (80.0-100.0) fL MCH (25.0-35.0) pg MCHC (31.0-37.0) g/dL RDW (11.5-15.5) % Plt Count (150-450) k/uL Neutrophils % % Lymphocytes % % Monocytes % % Eosinophils % % Basophils % % Neutrophils # (1.3-7.7) k/uL Lymphocytes # (1.0-4.8) k/uL Monocytes # (0-1.0) k/uL Eosinophils # (0-0.7) k/uL Basophils # (0-0.2) k/uL PT (9.0-12.0) sec INR (<1.2) APTT (22.0-30.0) sec D-Dimer (<0.60) mg/L FEU Sodium (137-145) mmol/L Potassium (3.5-5.1) mmol/L Chloride (98-107) mmol/L Carbon Dioxide (22-30) mmol/L Anion Gap mmol/L BUN (9-20) mg/dL Creatinine (0.66-1.25) mg/dL Est GFR (CKD-EPI)AfAm (>60 ml/min/1.73 sqM) Est GFR (CKD-EPI)NonAf (>60 ml/min/1.73 sqM) Glucose (74-99) mg/dL Calcium (8.4-10.2) mg/dL Magnesium (1.6-2.3) mg/dL Total Bilirubin (0.2-1.3) mg/dL AST (17-59) U/L ALT (21-72) U/L Alkaline Phosphatase (38-126) U/L Troponin I <0.012 (0.000-0.034) ng/mL Total Protein (6.3-8.2) g/dL Albumin (3.5-5.0) g/dL - Radiology Data Radiology results: report reviewed Chest Xray is negative for acute process. Disposition Clinical Impression: Spasm of thoracic back muscle Disposition: HOME SELF-CARE Condition: Good Instructions (If sedation given, give patient instructions): Muscle Spasm (ED) Additional Instructions: Patient advised to follow-up with primary care doctor and employee training specialist. Return to emergency department if any alarming signs or symptoms occur. Prescriptions: Orphenadrine [Norflex] 100 mg PO Q12H #12 tablet.er Ketorolac [Toradol] 10 mg PO TID #12 tab Is patient prescribed a controlled substance at d/c from ED?: No Referrals: Brenda Lynn MD [Primary Care Provider] - 1-2 days Raquel Morse DO [Doctor of Osteopathic Medicine] - 1-2 days Time of Disposition: 14:37
[2019-03-06 12:20] LABS: Basophils % (A) 1 %; Eosinophils # (A) 0.2 k/uL (0-0.7); Eosinophils % (A) 4 %; HGB 15.2 gm/dL (13.0-17.5); Lymphocytes # (A) 1.3 k/uL (1.0-4.8); Lymphocytes % (A) 21 %; MCH 32.7 pg (25.0-35.0); MCHC 34.5 g/dL (31.0-37.0); MCV 94.7 fL (80.0-100.0); Mean Platelet Volume 6.1; Monocytes # (A) 0.3 k/uL (0-1.0); Monocytes % (A) 5 %; Neutrophils # (A) 4.5 k/uL (1.3-7.7); Neutrophils % (A) 69 %; Platelet Count 288 k/uL (150-450); RBC 4.65 m/uL (4.30-5.90); RDW 12.4 % (11.5-15.5); WBC 6.5 k/uL (3.8-10.6)
[2019-03-06 12:27] LABS: ALT 44 U/L (21-72); AST 28 U/L (17-59); African American GFR (CKD) >90 (>60 ml/min/1.73 sqM); Albumin 4.8 g/dL (3.5-5.0); Alkaline Phosphatase 82 U/L (38-126); Anion Gap 8 mmol/L; Blood Urea Nitrogen 14 mg/dL (9-20); Calcium 9.9 mg/dL (8.4-10.2); Carbon Dioxide 27 mmol/L (22-30); Chloride 108 mmol/L (98-107); Glucose 103 mg/dL (74-99); Non-African American GFR(CKD) >90 (>60 ml/min/1.73 sqM); Potassium 4.4 mmol/L (3.5-5.1); Sodium 143 mmol/L (137-145); Total Bilirubin 0.7 mg/dL (0.2-1.3); Total Protein 7.9 g/dL (6.3-8.2)
--- NOTE | 2019-03-06 12:27 | XR ---
EXAMINATION TYPE: XR chest 2V DATE OF EXAM: 03/06/2019 COMPARISON: 08/14/2014 HISTORY: 48-year-old male with chest pain TECHNIQUE: PA and lateral views FINDINGS: Heart normal size. Aorta and pulmonary vasculature within normal limits. Mild diffuse interstitial pr ominence is unchanged. No consolidation, pneumothorax, or pleural effusion. IMPRESSION: Chronic changes without acute cardiopulmonary process.
[2019-03-06 12:30] LABS: D-Dimer 0.31 mg/L FEU (<0.60); INR 0.9 (<1.2); Prothrombin Time 9.7 sec (9.0-12.0)
[2019-03-06 12:31] LABS: Partial Thromboplastin Time 25.1 sec (22.0-30.0)
[2019-03-06 15:11] VITALS: BP 125/75; PULSE 65; TEMP 98.4
== END 2019-03-06 15:10 | disposition home or self-care (01) ==
LOC: EC 11:06
DX: M62.830 Muscle spasm of back (principal); F17.200 Nicotine dependence, unspecified, uncomplicated; Z85.47 Personal history of malignant neoplasm of testis; Z91.040 Latex allergy status; Z53.8 Procedure and treatment not carried out for other reasons
CPT/HCPCS: 99284; 96374; 96361 ×3; 36415; 93005; 85379; 80053; 83735; 84484; 85025; 85610; 85730; 71046; J1885

== ENCOUNTER → 2020-04-22 | Outpatient (CLI) | payer OTHER ==
--- NOTE | 2020-04-22 17:20 | US ---
EXAMINATION TYPE: US mass soft tissue chest/back DATE OF EXAM: 04/22/2020 COMPARISON: NONE CLINICAL HISTORY: 49-year-old male R59.1 Lymphoadenopathy. Lump right chest wall TECHNIQUE: Gelatin Plant Supervisor notes: Scant within area of concern, lump right chest wall. FINDINGS: Gelatin Plant Supervisor notes: Slightly vague echogenic oval area noted just deep to the skin surface measuring 1 .1 x 0.6 x 1.3cm, probable lipoma IMPRESSION: Targeted scanning along the right chest wall at the site of lump shows a vague oval echogenic area ju st deep to the skin surface measuring 1.3 cm. Some bruising or early fat necrosis is also possible. Follow-up in 6-8 weeks to reassess. If the area is symptomatic or any growth is noted, surgical evalu ation can be considered.
== END | disposition home or self-care (01) ==
LOC: RADUSWWP 13:02
PROVIDERS: ATTEND Surgery
DX: R22.2 Localized swelling, mass and lump, trunk (principal)

== ENCOUNTER → 2020-06-24 | Outpatient (CLI) | payer OTHER ==
--- NOTE | 2020-06-24 15:58 | US ---
EXAMINATION TYPE: US abdomen complete DATE OF EXAM: 06/24/2020 COMPARISON: NONE CLINICAL HISTORY: R74.8 ELEVATED LIVER ENZYMES. Elevated liver enzeymes EXAM MEASUREMENTS: Liver Length: 13.3 cm Gallbladder Wall: Surgically absent CBD: .6 cm Spleen: 9.7 cm Right Kidney: 10.3 x 4.6 x 4.2 cm Left Kidney: 11.1 x 5.6 x 3.8 cm Pancreas: Obscured by bowel gas Liver: wnl Gallbladder: Surgically absent Evidence for sonographic Payton's sign: CBD: wnl Spleen: wnl Right Kidney: No hydronephrosis or masses seen Left Kidney: No hydronephrosis or masses seen Upper IVC: wnl Abd Aorta: wnl IMPRESSION: 1. Normal abdomen ultrasound as visualized
== END ==
LOC: RADUSWWP 08:09
PROVIDERS: ATTEND Family Medicine
DX: R74.8 Abnormal levels of other serum enzymes (principal); Z90.49 Acquired absence of other specified parts of digestive tract
CPT/HCPCS: 76700

== ENCOUNTER 2020-10-25 21:43 | Emergency (ER) | payer OTHER ==
[2020-10-25 22:03] VITALS: BP 122/80; PULSE 71; RESP 18; TEMP 98.2
[2020-10-25] MEDS ORDERED: RX INFO: IV CONTRAST WAS GIVEN 1 EACH MISC MISCELLANE PRN (22:13)
[2020-10-25] MEDS ORDERED: MORPHINE SULFATE 4 MG/ML SYRINGE IV STA (22:13)
[2020-10-25] MEDS ORDERED: SODIUM CHLORIDE 0.9% 1,000 ML IV STA ×2 (22:13)
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
[2020-10-25 22:45] LABS: Basophils # (A) 0.1 k/uL (0-0.2); Basophils % (A) 1 %; Eosinophils # (A) 0.3 k/uL (0-0.7); Eosinophils % (A) 4 %; HCT 40.4 % (39.0-53.0); HGB 14.3 gm/dL (13.0-17.5); Lymphocytes # (A) 1.8 k/uL (1.0-4.8); Lymphocytes % (A) 24 %; MCH 33.2 pg (25.0-35.0); MCHC 35.3 g/dL (31.0-37.0); Mean Platelet Volume 7.4; Monocytes # (A) 0.4 k/uL (0-1.0); Monocytes % (A) 5 %; Neutrophils # (A) 4.7 k/uL (1.3-7.7); Neutrophils % (A) 65 %; Platelet Count 231 k/uL (150-450); RBC 4.29 m/uL (4.30-5.90); RDW 12.2 % (11.5-15.5); WBC 7.3 k/uL (3.8-10.6)
[2020-10-25 22:57] LABS: ALT 79 U/L (4-49); AST 45 U/L (17-59); African American GFR (CKD) >90 (>60 ml/min/1.73 sqM); Albumin 4.4 g/dL (3.5-5.0); Alkaline Phosphatase 79 U/L (38-126); Anion Gap 12 mmol/L; Blood Urea Nitrogen 14 mg/dL (9-20); Calcium 9.1 mg/dL (8.4-10.2); Carbon Dioxide 25 mmol/L (22-30); Chloride 108 mmol/L (98-107); Creatine Kinase 306 U/L (55-170); Glucose 87 mg/dL (74-99); Magnesium 2.2 mg/dL (1.6-2.3); Non-African American GFR(CKD) 84 (>60 ml/min/1.73 sqM); Potassium 3.5 mmol/L (3.5-5.1); Sodium 145 mmol/L (137-145); Total Bilirubin 0.4 mg/dL (0.2-1.3)
[2020-10-25 23:08] LABS: Prothrombin Time 10.4 sec (9.0-12.0)
[2020-10-25 23:09] LABS: Partial Thromboplastin Time 19.8 sec (22.0-30.0)
--- NOTE | 2020-10-25 23:22 | CT ---
EXAMINATION TYPE: CT angio lower extremity RT DATE OF EXAM: 10/25/2020 COMPARISON: None HISTORY: pain CT DLP: 1296.8 mGycm Automated exposure control for dose reduction was used. CONTRAST: Performed with IV Contrast, patient injected with 100 mL of Isovue 370. Images obtained from the level of the iliac crests to the bottom of the right foot with IV contrast. There are 3-D post processed images. There is arterial flow in the lower abdominal aorta. There is arterial flow in the right common inter nal and external iliac arteries. There is metal artifact over the right hip. There is wide patency of the iliac artery and the femoral artery. There is arterial flow in the popliteal artery. There is ar terial flow in the tibial artery and the tibial artery trifurcation. There is arterial flow in the an terior and posterior tibial arteries at the ankle. There is arterial flow in the dorsalis pedis arter y down to the tarsal arch. There is arterial flow to the plantar midfoot from the posterior tibial ar nadir. There is arterial flow in the peroneal artery down to the lower calf. I see no evidence of hemo dynamic stenosis. There is no aneurysm or dissection. There is a knee joint effusion. I see no fractu re at the knee. IMPRESSION: No angiographic abnormality of the right leg. No fracture seen.
== END 2020-10-26 00:10 | disposition home or self-care (01) ==
LOC: EC 21:43
DX: S83.104A Unspecified dislocation of right knee, initial encounter (principal); Z87.891 Personal history of nicotine dependence; Z91.040 Latex allergy status; V28.0XXA Motorcycle driver injured in noncollision transport accident in nontraffic accident, initial encounter; Y92.009 Unspecified place in unspecified non-institutional (private) residence as the place of occurrence of the external cause
CPT/HCPCS: 80053; 82550; 83735; 84100; 85025; 85610; 85730; 73706; 99284; 96374; 96361; L1830; J2270; Q9967

== ENCOUNTER → 2021-02-26 | Outpatient (CLI) | payer OTHER ==
--- NOTE | 2021-02-26 08:56 | US ---
EXAMINATION TYPE: US abdomen complete DATE OF EXAM: 02/26/2021 COMPARISON: 06/24/2020 CLINICAL HISTORY: R74.9 Abnormal levels of other serum enzymes,Z85.47. EXAM MEASUREMENTS: Liver Length: 13.9 cm Gallbladder Wall: Surgically absent CBD: 0.7 cm Spleen: 8.8 cm Right Kidney: 11.2x5.7x5.2 cm Left Kidney: 11.5x4.6x5.9 cm Pancreas: Tail obscured by overlying bowel gas Liver: Increased attenuation Gallbladder: Surgically absent CBD: wnl Spleen: wnl Right Kidney: wnl Left Kidney: wnl Upper IVC: wnl Abd Aorta: wnl The intrahepatic portion of the IVC and proximal abdominal aorta are within normal limits. Common bi le duct is unremarkable. The visualized portions of the pancreas are homogenous. The spleen is unre markable. Kidneys are symmetric and free of hydronephrosis. No renal lesions are seen. IMPRESSION: Hepatic steatosis.
== END | disposition home or self-care (01) ==
LOC: RADUSWWP 08:04
PROVIDERS: ATTEND Family Medicine
DX: K76.0 Fatty (change of) liver, not elsewhere classified (principal); R74.8 Abnormal levels of other serum enzymes; Z85.47 Personal history of malignant neoplasm of testis
CPT/HCPCS: 76700

== ENCOUNTER 2024-06-15 09:04 | Day surgery (SDC) | payer OTHER ==
[2024-06-14 11:17] VITALS: BMI 31.9
[~2024-06-15 09:04] MED LIST changes: -DEXAMETHASONE SOD PHOSPHATE 10 MG/ML 1 ML VIAL IV ONE; -HEPARIN SODIUM,PORCINE 5,000 UNIT/ML 1 ML VIAL SQ ONE; +LACTATED RINGERS 1,000 ML IV SCH; -ONDANSETRON 4 MG/2 ML VIAL IVP ONE; -ceFAZolin 2 GM in SODIUM CHLORIDE 0.9% 100 ML IVPB ONE
[2024-06-15 09:37] VITALS: TEMP 96.8
[2024-06-15] MEDS: LACTATED RINGERS 1,000 ML IV ONE (09:46)
[2024-06-15] MEDS ORDERED: LIDOCAINE 1% INJ 10MG/ML (20 ML MDV) ONE (10:09)
[2024-06-15] MEDS ORDERED: PROPOFOL 10 MG/ML 20 ML VIAL IV ONE (10:09)
--- NOTE | 2024-06-15 10:27 | P.PCN ---
Date of Procedure: 06/15/24 Procedure(s) Performed: BRIEF HISTORY: Patient is a 53-year-old pleasant white male scheduled for an elective colonoscopy as a part of evaluation of positive FIT in the stool. Denies any symptoms. PROCEDURE PERFORMED: Colonoscopy. PREOPERATIVE DIAGNOSIS: Positive stool FIT. IV sedation per Anesthesia. PROCEDURE: After informed consent was obtained, the patient, was brought into the endoscopy unit. IV sedation was administered by Anesthesia under continuous monitoring. Digital rectal examination was normal. Initially the Olympus CF-160 flexible video colonoscope was then inserted in the rectum, gradually advanced into the cecum without any difficulty. Careful examination was performed as the scope was gradually being withdrawn. Ileocecal valve and the appendiceal orifice were visualized and appeared normal. Prep was excellent. Mucosa of the cecum, ascending colon, transverse colon, descending colon, sigmoid colon, and rectum appeared normal. Retroflexion was performed in the rectum and small internal hemorrhoid were seen. The patient tolerated the procedure well. IMPRESSION: Normal-appearing colon from rectum to cecum with biopsy of colorectal neoplasia Small internal hemorrhoids. RECOMMENDATIONS: Findings of this examination were discussed with the patient as well as his family. He was advised to have repeat screening colonoscopy in 10 years.
[2024-06-15 10:48] VITALS: BP 135/96; PULSE 74; RESP 16
== END 2024-06-15 11:09 | disposition home or self-care (01) ==
LOC: ORWHC2ENDO 09:04
PROVIDERS: ATTEND Internal Medicine Gastroenterology
DX: R19.5 Other fecal abnormalities (principal); K64.8 Other hemorrhoids; F41.9 Anxiety disorder, unspecified; F31.9 Bipolar disorder, unspecified; Z85.47 Personal history of malignant neoplasm of testis; Z79.899 Other long term (current) drug therapy; Z90.79 Acquired absence of other genital organ(s); Z91.040 Latex allergy status
CPT/HCPCS: 45378; J2003; J2704

== ENCOUNTER → 2024-08-07 | Outpatient (CLI) | payer OTHER ==
--- NOTE | 2024-08-07 12:25 | CT ---
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 Contrast used:100ml mL of Isovu e 300 with IV Contrast, delayed images through the kidneys and coronal/sagittal reconstructions perfo rmed. Oral contrast used: without Oral Contrast CT DLP: 1331.80 mGycm, Automated exposure control for dose reduction was used. Findings: CHEST: Heart normal size without pericardial effusion. Mild LAD coronary artery calcifications are noted. Aorta normal caliber with conventional vessel branching anatomy. No thoracic lymphadenopathy by CT size criteria. Lungs show mild emphysematous change and mild diffuse bronchial wall thickening. No consolidation or pleural effusion. ABDOMEN: Postsurgical changes of Francois fundoplication. There appears to be some slippage of the Francois wrap a malgorzata the level of the diaphragmatic hiatus. Refer the patient back to her surgeon if any recurrent sy mptoms. No focal liver lesion or biliary ductal dilatation. Portal venous system is patent. Cholecystectomy c lips. Similar slight thickening of the left adrenal gland without discrete nodularity. Right adrenal gland, left kidney, spleen, and pancreas within normal limits. A small cortical cyst posterior mid right kidney measuring 1.0 cm. Small omental fat-containing supraumbilical abdominal wall hernia measuring 2.2 cm wide. Multiple surgical clips related to prior retroperitoneal node dissection. No suspicious adenopathy is clearly identified allowing for limitations from metal artifact. No dilated small bowel, free fluid, or free air. Normal appendix. There is sigmoid diverticulosis. No pericolonic inflammatory change. Moderate stool distending the rectum up to 5.4 cm wide. Pelvis: Mild circumferential bladder wall thickening may be due to nondistention. Prostate gland normal size of 2.8 cm wide. Patient status post right orchiectomy. No pelvic adenopathy identified by size criter ia. Bones: Hypertrophic facet arthropathy lower lumbar spine. Degenerative grade 1 retrolisthesis L2-L3 and L3-L 4. Moderate degenerative disc disease L3-L4 and L5-S1. No osseous destructive process. IMPRESSION: 1. Status post right orchiectomy and retroperitoneal node dissection. No evidence for metastatic dise ase in the chest, abdomen, or pelvis. 2. COPD with mild emphysema. Coronary artery calcifications. 3. Status post Francois fundoplication. There appears to be partial herniation of the Francois wrap above the diaphragmatic hiatus. Consider further patient back to her surgeon if any recurrent symptoms. 4. Mild sigmoid diverticulosis without acute diverticulitis. Small focal fat-containing abdominal wal l hernia measuring 2.2 cm wide. [facility], , 08/07/2024 12:22 PM
== END | disposition home or self-care (01) ==
LOC: RADCTMAIN 10:53
PROVIDERS: ATTEND Urology
DX: C62.00 Malignant neoplasm of unspecified undescended testis (principal); J44.9 Chronic obstructive pulmonary disease, unspecified; I25.10 Atherosclerotic heart disease of native coronary artery without angina pectoris; J43.9 Emphysema, unspecified; K57.30 Diverticulosis of large intestine without perforation or abscess without bleeding; Z90.79 Acquired absence of other genital organ(s); K43.9 Ventral hernia without obstruction or gangrene; Z98.890 Other specified postprocedural states
CPT/HCPCS: 71260; 74177; Q9967